=== PATIENT | female | born 1950 | race Caucasian/White ===

== ENCOUNTER → 2023-06-19 06:45 | Outpatient (REF) | payer MEDICARE, SELFPAY ==
[2023-06-19] MEDS: LEXISCAN 0.400000000000000022 MG IV (09:43)
[2023-06-19] MEDS: FLUSH (NSS) 1 FLUSH IV (09:44)
== END ==
LOC: RCS 06:45
PROVIDERS: ATTENDING PHYSICIAN Internal Medicine Cardiovascular Disease; FAMILY PHYSICIAN Family Medicine
DX: R07.89 Other chest pain (principal)
CPT/HCPCS: 78452; 93017; A9500; J2785

== ENCOUNTER → 2023-07-13 10:46 | Outpatient (REF) | payer MEDICARE, SELFPAY ==
[2023-07-13 12:43] LABS: ALT (SGPT) 32 U/L (0-35); AST (SGOT) 37 U/L (14-36); Albumin 4.2 g/dl (3.5-5.0); Alkaline Phosphatase 132 U/L (38-126); Blood Urea Nitrogen 66 mg/dl (7-17); Calcium 10.9 mg/dl (8.4-10.2); Carbon Dioxide 27 mmol/L (22-30); Chloride 101 mmol/L (98-107); Glucose 149 mg/dl (70-99); Glycohemoglobin (HgbA1c) 7.4 % (4.0-5.6); Potassium 4.5 mmol/L (3.5-5.1); Sodium 139 mmol/L (135-145); Total Bilirubin 0.6 mg/dl (0.2-1.3); Total Protein 7.2 g/dl (6.3-8.2); eGFR 17.95
[2023-07-14 13:20] LABS: Intact PTH 97.2 pg/ml (13.6-85.8)
== END ==
LOC: REG 10:46
PROVIDERS: ATTENDING PHYSICIAN Internal Medicine Endocrinology, Diabetes & Metabolism; FAMILY PHYSICIAN Family Medicine
DX: E11.9 Type 2 diabetes mellitus without complications (principal); E21.0 Primary hyperparathyroidism
CPT/HCPCS: 36415; 80053; 83036; 83970

== ENCOUNTER → 2023-07-16 12:39 | Outpatient (REF) | payer MEDICARE, SELFPAY | LOC: RCS 12:39 | PROVIDERS: ATTENDING PHYSICIAN Internal Medicine Cardiovascular Disease; FAMILY PHYSICIAN Family Medicine | DX: R07.89 Other chest pain (principal) | CPT/HCPCS: 93306 ==

== ENCOUNTER → 2023-11-09 10:46 | Outpatient (REF) | payer MEDICARE, SELFPAY ==
[2023-11-09 11:55] LABS: ALT (SGPT) 17 U/L (0-35); AST (SGOT) 27 U/L (14-36); Albumin 4.3 g/dl (3.5-5.0); Alkaline Phosphatase 139 U/L (38-126); Blood Urea Nitrogen 73 mg/dl (7-17); Carbon Dioxide 24 mmol/L (22-30); Chloride 100 mmol/L (98-107); Glucose 150 mg/dl (70-99); Potassium 4.8 mmol/L (3.5-5.1); Sodium 139 mmol/L (135-145); Total Bilirubin 0.6 mg/dl (0.2-1.3); Total Protein 6.9 g/dl (6.3-8.2); eGFR 17.18
[2023-11-09 12:23] LABS: Glycohemoglobin (HgbA1c) 7.4 % (4.0-5.6)
[2023-11-10 10:38] LABS: Intact PTH 78.2 pg/ml (13.6-85.8)
== END ==
LOC: REG 10:46
PROVIDERS: ATTENDING PHYSICIAN Internal Medicine Endocrinology, Diabetes & Metabolism; FAMILY PHYSICIAN Family Medicine
DX: E11.9 Type 2 diabetes mellitus without complications (principal); E21.0 Primary hyperparathyroidism
CPT/HCPCS: 36415; 80053; 83036; 83970

== ENCOUNTER → 2024-05-09 13:16 | Outpatient (REF) | payer MEDICARE, SELFPAY ==
[2024-05-09 15:10] LABS: ALT (SGPT) 28 U/L (0-35); AST (SGOT) 32 U/L (14-36); Albumin 4.5 g/dl (3.5-5.0); Alkaline Phosphatase 167 U/L (38-126); Blood Urea Nitrogen 75 mg/dl (7-17); Calcium 10.5 mg/dl (8.4-10.2); Carbon Dioxide 27 mmol/L (22-30); Chloride 98 mmol/L (98-107); Glucose 236 mg/dl (70-99); Potassium 4.9 mmol/L (3.5-5.1); Sodium 138 mmol/L (135-145); Total Bilirubin 0.9 mg/dl (0.2-1.3); eGFR 17.84
[2024-05-10 10:51] LABS: Glycohemoglobin (HgbA1c) 7.1 % (4.0-5.6)
[2024-05-11 11:55] LABS: Intact PTH 78.2 pg/ml (13.6-85.8)
== END ==
LOC: REG 13:16
PROVIDERS: ATTENDING PHYSICIAN Internal Medicine Endocrinology, Diabetes & Metabolism; FAMILY PHYSICIAN Internal Medicine
DX: E11.9 Type 2 diabetes mellitus without complications (principal); E21.0 Primary hyperparathyroidism
CPT/HCPCS: 36415; 80053; 83036; 83970